=== PATIENT | male | born 1955 | race Caucasian/White ===

== ENCOUNTER 2018-05-22 09:13 | Day surgery (SDC) | payer OTHER ==
[2018-05-22] MEDS ORDERED: RECTICARE30 GM TOP (12:58)
[2018-05-22] MEDS ORDERED: VOLTAREN-XR100 MG PO (12:59)
== END 2018-05-22 14:05 | disposition home or self-care (01) ==
LOC: AMB-ENDOS 09:13
DX: D12.3 Benign neoplasm of transverse colon (principal); K64.8 Other hemorrhoids